=== PATIENT | female | born 1970 | race Caucasian/White ===

== ENCOUNTER → 2017-06-04 | Day surgery (SDC) | payer OTHER ==
[~2017-06-04] VITALS: Ht 165.1 cm; Wt 74.0 kg
[~2017-06-04] MED LIST: ACETAMINOPHEN 1000 MG/100 ML 100 ML IV ONE; ACETAMINOPHEN/HYDROcodone 325 MG/7.5 MG TAB ONE; ACETAMINOPHEN/HYDROcodone 325 MG/7.5 MG TAB PO PRN; ARTIFICIAL TEARS OPTH OINT 3.5 APPLIC/3.5 GM TUBO ONE; BETAMETHASONE SOD PHOS/ACETATE SUSP 30 MG/5 ML VIAL ONE; BUPIVACAINE/EPINEPHRINE 0.25% PF 30 ML VIAL ONE; CETI-1 PO; CHLORHEXIDINE GLUCONATE 2 % 1 PACK (2 CLOTHS) TOPICAL PRN; CHOL10008 PO; CYCL10TA PO; DEXAMETHASONE SOD PHOS 4 MG/ML VIAL IV ONE; DO NOT ADM ANY ANTICOAGULANT DRUGS PRN; FLUT1SPR5 EACH NARE; GELATIN 12 MM/7 MM FOAM ONE; GELFOAM SIZE 100 ONE; GENTAMICIN SULFATE 80 MG/2 ML VIAL ONE; HYDR-3288 PO; INSULIN HUMAN REGULAR 1,000 UNITS/10 ML VIAL SQ PRN; KETOROLAC TROMETHAMINE 30 MG/ML (IVP) VIAL IV PUSH ONE; LACTATED RINGER'S 1000 ML IV PRN; LACTATED RINGER'S 1000 ML IV SCH; LIDOCAINE HCL 1% PF 5 ML SYRINGE OTHER ONE; MELO15TA20 PO; METOPROLOL TARTRATE 25 MG TAB PO PRN; MIDAZOLAM HCL 2 MG/2 ML VIAL IV ONE; MORPHINE SULFATE 4 MG/ML INJ IV PUSH PRN; NEOSTIGMINE 5 MG/5 ML SYRINGE IV PUSH ONE; ONDANSETRON HCL 4 MG/2 ML VIAL IV ONE; PHENYLEPH/NS 1000 MCG/10 ML SYR IV ONE; POVIDONE IODINE 5% (ANTISEPSIS KIT) 4 APPLICATIONS EACH NARE PRN; POVIDONE IODINE 7.5% SCRUB 118 ML BOTTLE TOPICAL SCH; PROPOFOL 200 MG/20 ML AMP IV ONE; ROCURONIUM INJ 50 MG/5 ML SYRINGE IV PUSH ONE; SODIUM CHLORID 0.9% 500 ML IV PRN; TRAM50TA PO; VITA500T83 PO; ceFAZolin 2 GM PREMIX 50 ML IV SCH
--- NOTE | 2017-06-04 09:59 | PD.OP ---
cc: Mp Pereyra. Operative Report Date of Surgery: Jun 04, 2017 Preoperative Diagnosis: Herniated nucleus pulposus L5-S1, right. Lumbar spinal stenosis, L5-S1 right. Right lumbosacral radiculopathy Postoperative Diagnosis: Same Procedure: Right lumbar laminectomy L5-S1, lateral recess decompression, resection herniated nucleus pulposus Anesthesia: Gen. Surgeon: Mp Pereyra Critical Care Physician Assistant(s): RACHEL Posada Operation and Findings: EBL: 25 cc INDICATION: This patient is a 46-year-old female with significant back right hip and leg pain. Investigative studies shows evidence of a disc herniation eccentric to the right at and below the disc space L5-S1. She's had conservative care dictated in documented in the attached records. She now presents for surgical treatment. NOTE: Charlene Posada PA-C was present for the entire surgical procedure as my community program assistant. In my medical opinion her skill and care was necessary for the proper management of this patient. PROCEDURE: The patient was brought to the operating room and anesthetized in the supine position. The patient was rolled to a prone position on a Dago frame on a Tl table. All pressure points were protected in the back was scrubbed with alcohol followed by Hibiclens followed by ChloraPrep and draped sterilely. A timeout was done and antibiotics were given. AP and lateral radiographic images were used to identify the proper levels and perform skin markings. We started from the right side at the L5-S1 level. A paramedian incision was made and an off-midline fascial incision was made. A dilating system was placed down to the interlaminar space and held provisionally to the side of the table. The microscope was brought into the field. A high-speed bur under the microscope was used to perform a predominantly right sided laminectomy from that side. A lateral recess decompression was accomplished using straight and angled Kerrison punches. A partial medial facetectomy was accomplished. The crossing and exiting nerve roots were completely decompressed. The wound was irrigated copiously. A small piece of Gelfoam with Celestone was placed into the epidural space. Hemostasis was controlled. The deep fascia was approximated with interrupted 0 Vicryl suture subcutaneous suture with 2-0 Vicryl suture and skin with running intradermal 3-0 Vicryl followed by Dermabond. A field block with local anesthesia was utilized. A sterile dressing was applied. The sponge count and needle counts and instrument counts were all correct. The patient tolerated the procedure well as taken to the recovery room in satisfactory condition. FINDINGS: There was evidence of a sub-ligamentous disc herniation extending below the disc space underneath the posterior longitudinal ligament. There was moderate to significant right lateral recess stenosis involving back in the crossing S1 nerve root at just below the disc space. This was completely decompressed. There was no evidence of nerve root compression at the end of the procedure. Mp Pereyra MD Jun 04, 2017 09:59
[2017-06-04 11:30] VITALS: BP 115/71; PULSE 71; RESP 18; TEMP 97.3; O2SAT 95
--- NOTE | 2017-06-04 14:30 | RADRPT ---
EXAM DATE/TIME: 06/04/2017 09:08 [facility] COMPARISON: No previous studies available for comparison. INDICATIONS : Lumbar spine L5-S1 laminectomy. OR. MEDICAL HISTORY : None. SURGICAL HISTORY : None. ENCOUNTER: Initial ACUITY: 1 day PAIN SCORE: Non-responsive. LOCATION: Lumbar L5-S1 FINDINGS: A single lateral view of the lumbar spine was performed. Surgical measurement is for level localizer is located at the L5-S1 level.. CONCLUSION: Level localizer at L5-S1. Jaleel Arango MD on June 04, 2017 at 14:28 Board Certified Radiologist. This report was verified electronically.
== END | disposition home or self-care (01) ==
LOC: HSDC 06:07
PROVIDERS: ATTEND Orthopaedic Surgery Orthopaedic Surgery of the Spine
DX: M51.17 Intervertebral disc disorders with radiculopathy, lumbosacral region (principal)
CPT/HCPCS: 00630; 63047; 72020; 76000; J0131; J0690; J0702; J1100; J1580; J1885; J2250; J2370; J2405; J2710; J3010; J7120